=== PATIENT | female | born 1955 | race Caucasian/White ===

== ENCOUNTER → 2017-11-01 | Day surgery (SDC) | payer BC, OTHER ==
[~2017-11-01] VITALS: Ht 162.6 cm; Wt 77.2 kg
[~2017-11-01] MED LIST: ALPR0.25 PO; ASPI1TAB57 PO; ASPI1TAB69 PO; ATOR20TA15 PO; BUPIVACAINE HCL PF 0.5% 10 ML VIAL ONE; CHLORHEXIDINE GLUCONATE 2 % 1 PACK (2 CLOTHS) TOPICAL PRN; CIPR250T52 PO; CIPROFLOXACIN/DEXT 400 MG/200 ML IV SCH; HYDR-3288 PO; IBUP1TAB7 PO; LACTATED RINGER'S 1000 ML IV PRN; LEVO25TA39 PO; LIDOCAINE HCL 2% 50 ML VIAL ONE; METOPROLOL TARTRATE 25 MG TAB PO PRN; MIDAZOLAM HCL 2 MG/2 ML VIAL ONE; MOBI15TA PO; MONT10TA2 PO; NEOMYCIN/POLYMYXIN 1 ML G.U. IRRIGANT ONE; POVIDONE IODINE 5% (ANTISEPSIS KIT) 4 APPLICATIONS EACH NARE PRN; SODIUM CHLORID 0.9% 500 ML IV PRN; ZOLO50TA PO
--- NOTE | 2017-11-01 13:29 | MP ---
cc: Óscar Modi MD DATE OF OPERATION: 11/01/2017 POSTOPERATIVE DIAGNOSIS: Left de Quervain's tenosynovitis. PROCEDURE: Left first dorsal compartment release. SURGEON: Óscar Modi III, MD DESCRIPTION OF PROCEDURE: The patient was brought to the operating room and placed supine on the operating table. After the correct site and side of surgery were verified by members of each team in the room multiple times and, after adequate IV sedation was achieved, the left upper extremity was prepped and draped in traditional sterile surgical fashion. A 50:50 mixture of 2% plain lidocaine and 0.5% plain Marcaine was infiltrated into the skin and subcutaneous tissue over the first dorsal compartment. The limb was exsanguinated with a gentle Bossman wrap and a highly placed a well-padded axillary tourniquet was inflated to 200 mmHg for a total of 14 minutes. A transversely oriented incision in the skin crease of the wrist on the radial side of the wrist was made, carried down through skin and subcutaneous tissue. Blunt dissection was performed. The dorsal sensory branch of the radial nerve was identified and protected the entire case. The first dorsal compartment was identified and found to be very thick and redundant. There were 4 limbs of the tendon within it. It was freed on its dorsal-most border. Passive range of motion examination did not reveal any subluxation. All of the tendons were retracted dorsally and there was no other compartmentalization identified. There was obvious inflammation on the tendon, but they were otherwise intact and in good condition. Thorough irrigation was performed. The dorsal sensory branch was visualized and found to still be in good shape. The first dorsal compartment was then allowed to flap back down on top of the tendons. Thorough irrigation was performed again with saline and then the skin edges were reapproximated using running and interrupted 4-0 nylon sutures. The hand and arm were thoroughly cleansed and dried. Betadine and Adaptic dressing was applied on top of the wounds, followed by Betadine, Adaptic and a bulky well-padded, well-molded short arm thumb spica splint. The axillary tourniquet was released prior to placement of the splint. The patient was awakened from anesthesia and transported to the postanesthesia care unit awake and in stable condition. At the end of the case, sponge, needle and instrument counts were correct at the end of the case as reported by the nurses in the room. MD TROY Ledezma/GLENNY , 12:45 PM , 01:29 PM
[2017-11-01 13:30] VITALS: BP 122/71; PULSE 65; RESP 16; TEMP 97.8; O2SAT 97
== END | disposition home or self-care (01) ==
LOC: PHSDC 09:27
PROVIDERS: ATTEND Orthopaedic Surgery Hand Surgery
DX: M65.4 Radial styloid tenosynovitis [de Quervain] (principal); E78.5 Hyperlipidemia, unspecified; I10 Essential (primary) hypertension; E03.9 Hypothyroidism, unspecified
CPT/HCPCS: 01810; 25000; J0744; J2250; J3010; J7120